=== PATIENT | female | born 1970 | race Two or more races ===

== ENCOUNTER 2017-11-05 00:54 | Emergency (ER) | payer OTHER ==
[2017-11-05 00:59] VITALS: RESP 18
[2017-11-05] MEDS ORDERED: DEXAMETHASONE 10 MG/ML VIAL PO ONE (01:50)
[2017-11-05] MEDS ORDERED: ACETAMINOPHEN 500 MG TAB PO ONE (01:50)
[2017-11-05] MEDS ORDERED: LIDOCAINE 2% VISCOUS 15 ML UDCUP PO ONE (01:50)
[2017-11-05] MEDS ORDERED: IBUPROFEN 200 MG TAB PO ONE (01:50)
--- NOTE | 2017-11-05 01:54 | EDPHY ---
H & P Stated Complaint: sore throat, R eye pain, bilateral ear pain since Friday HPI/ROS: HPI The patient presents with sore throat for the last 3 days which started slowly and is getting progressively worse. As she was unable to sleep tonight because the pain was severe, she came into the emergency department. The pain is worse upon swallowing, is achy in nature, and radiates to both of her ears. She has a mild occasional cough, rhinorrhea. She thinks she may have had a fever but did not check her temperature with a thermometer. She denies any sick contacts. Today she noticed that her right eye was red. She does not have any changes in her vision. REVIEW OF SYSTEMS Constitutional: No fever, no chills. Eyes: No discharge. ENT: Positive for sore throat. Cardiovascular: No chest pain, no palpitations. Respiratory: Positive for cough, no shortness of breath. Gastrointestinal: No abdominal pain, no vomiting. Genitourinary: No hematuria. Musculoskeletal: No back pain. Skin: No rashes. Neurological: No headache. PMHx: Healthy Soc Hx: Lives at home PHYSICAL General Appearance: Alert, no distress Eyes: Pupils equal and round, right conjunctiva is injected diffusely with limbic sparing ENT, Mouth: Posterior pharynx is erythematous without edema, there is white is exudate present, Mucous membranes moist, TMs clear bilaterally Respiratory: There are no retractions, lungs are clear to auscultation Cardiovascular: Regular rate and rhythm Gastrointestinal: Abdomen is soft and non-tender, no masses, bowel sounds normal Neurological: A&O, moves all extremities Skin: Warm and dry, no rashes Musculoskeletal: Neck is supple non tender Extremities: symmetrical, full range of motion Psychiatric: Patient is oriented X 3, there is no agitation Source: Patient Exam Limitations: No limitations - Personal History LMP (Females 10-55): 8-14 Days Ago Current Tetanus/Diphtheria Vaccine: Yes - Medical/Surgical History Hx Asthma: No Hx Chronic Respiratory Disease: No Hx Diabetes: No Hx Cardiac Disease: No Hx Renal Disease: No Hx Cirrhosis: No Hx Alcoholism: No Hx HIV/AIDS: No Hx Splenectomy or Spleen Trauma: No Other PMH: none - Social History Smoking Status: Never smoked Constitutional: Initial Vital Signs Temperature (C) 36.5 C 11/05/17 00:56 Heart Rate 105 H 11/05/17 00:56 Respiratory Rate 18 11/05/17 00:56 Blood Pressure 160/104 H 11/05/17 00:56 O2 Sat (%) 99 11/05/17 00:56 O2 Delivery Mode Room Air Allergies/Adverse Reactions: No Known Allergies Allergy (Verified 11/05/17 00:59) Home Medications: Medication Instructions Recorded Miscellaneous Medical Supply [NO 1 ea MISC AD 11/05/12 HOME MEDS] Medical Decision Making Differential Diagnosis: 47-year-old female presents from home with 3 days of sore throat, cough, rhinorrhea, and conjunctivitis. On exam, she has exudative pharyngitis. Differential diagnosis includes strep pharyngitis, viral pharyngitis, influenza , RSV. In the emergency department, rapid strep, influenza and RSV testing was all negative. The patient received medication and felt much better. I feel she is likely suffering from a viral URI and subsequent conjunctivitis. I do not feel she requires antibiotics. I have advised her to continue with ibuprofen and Tylenol. She should follow up with her primary care doctor in the next 1-2 days unless she is completely better. - Data Points Laboratory Results: 11/05/17 Unknown Group A Strep DNA NEGATIVE (NEGATIVE) Medications Given: Discontinued Medications Acetaminophen (Tylenol) 1,000 mg PO EDNOW ONE Stop: 11/05/17 01:51 Last Admin: 11/05/17 01:57 Dose: 1,000 mg Dexamethasone (Decadron Injection) 10 mg PO EDNOW ONE Stop: 11/05/17 01:51 Last Admin: 11/05/17 01:57 Dose: 10 mg Ibuprofen (Motrin) 400 mg PO EDNOW ONE Stop: 11/05/17 01:51 Last Admin: 11/05/17 01:56 Dose: 400 mg Lidocaine (Lidocaine 2% Viscous) 5 ml PO EDNOW ONE Stop: 11/05/17 01:51 Last Admin: 11/05/17 01:56 Dose: 5 ml Departure - Departure Disposition: Home, Routine, Self-Care Clinical Impression: Acute pharyngitis Condition: Good Instructions: Pharyngitis (ED) Additional Instructions: Please follow-up with your primary care doctor in 1-2 days for recheck. Should return to the emergency department if your worse in any way. I recommend you take ibuprofen 400 mg with acetaminophen 650 mg every 6 hr as needed for pain. Referrals: MARLON MOY [Primary Care Provider] - As per Instructions
[2017-11-05 04:03] VITALS: BP 138/84; PULSE 74; TEMP 98.2; O2SAT 96
== END 2017-11-05 04:03 | disposition home or self-care (01) ==
DX: J02.9 Acute pharyngitis, unspecified (principal)
CPT/HCPCS: J1100